=== PATIENT | female | born 1990 | race Caucasian/White ===

== ENCOUNTER 2017-03-15 16:40 | Inpatient (IN) | payer BC ==
[2017-03-15] MEDS ORDERED: Nalbuphine 20 MG/1 ML Amp IVPUSH PRN (16:58)
[2017-03-15] MEDS ORDERED: Ondansetron 4 MG/2 ML SDV IVPUSH PRN (16:58)
[2017-03-15] MEDS ORDERED: Sodium Chloride 0.9% 10 ML Syringe FLUSH PRN (16:58)
[2017-03-15] MEDS ORDERED: Acetaminophen 325 MG Tab PO PRN (16:58)
--- NOTE | 2017-03-15 16:58 | PCM.LDHP ---
L&D History of Present Illness - General Date of Service: 03/15/17 Admit Problem/Dx: Admission Diagnosis/Problem Admission Diagnosis/Problem Source of Information: Patient History Limitations: Reports: No Limitations - History of Present Illness Introduction:: Patient is a 26 y/o at 37 2/7 wks who presents today for PROM. Was seen in clinic earlier today and reported a few day history of increased watery discharge. Amnisure done in clinic was positive. She was advised to present for augmentation/IOL due to this finding. Otherwise doing well with no other concerns. 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: , Spontaneous : 3 Para: 1 LMP (Approximate): Endocrine/Metabolic History: Reports: Diabetes, Gestational - Past Surgical History Female Surgical History: Reports: D&C Social & Family History - Family History Family Medical History: Noncontributory - Tobacco Use Smoking Status *Q: Never Smoker Used Tobacco, but Quit: No Second Hand Smoke Exposure: No - Alcohol Use Alcohol Use History: No - Recreational Drug Use Recreational Drug Use: No H&P Review of Systems - Review of Systems: Review Of Systems: See Below General: Reports: No Symptoms Pulmonary: Reports: No Symptoms Cardiovascular: Reports: No Symptoms Gastrointestinal: Reports: No Symptoms Genitourinary: Reports: No Symptoms Musculoskeletal: Reports: No Symptoms L&D Exam - Exam Exam: See Below - OB Specific Contraction Intensity: Irritability Movement: Active Heart Tones: Present Heart Tones per Min: 145 Heart Rate (FHR) Variability: Moderate (6-25 bmp) Presentation: Vertex - Mckeon Score Mckeon Score Cervix Position: Midposition Mckeon Score Consistency: Soft Mckeon Score Effacement: >80% Mckeon Score Dilation: 3-4 cm Mckeon Score 's Station: -1 ,0 Mckeon Score Total: 10 - Exam General: Alert, Oriented, Cooperative Lungs: Clear to Auscultation, Normal Respiratory Effort Cardiovascular: Regular Rate, Regular Rhythm GI/Abdominal Exam: Soft, Non-Tender Genitourinary: Normal external exam Extremities: Normal Inspection Skin: Warm, Dry, Intact - Patient Data Result Diagrams: 03/15/17 17:20 - Problem List (1) 37 weeks gestation of SNOMED Code(s): 33276245 ICD Code: Z3A.37 - 37 WEEKS GESTATION OF Status: Acute Current Visit: Yes (2) Premature rupture of membranes SNOMED Code(s): 43972906 ICD Code: O42.90 - SYLVIE ROM, 7TH0 BETW RUPT & ONST LABR, UNSP WEEKS OF GEST Status: Acute Current Visit: Yes Qualifiers: PROM onset of labor timing: unspecified duration between rupture of membranes and onset of labor PROM gestational age: full term Qualified Code( s): O42.92 - Full-term premature rupture of membranes, unspecified as to length of time between rupture and onset of labor (3) Gestational diabetes, diet controlled SNOMED Code(s): 91392496 ICD Code: O24.410 - GESTATIONAL DIABETES MELLITUS IN , DIET CONTROLLED Status: Acute Current Visit: No Qualifiers: Trimester: third trimester Qualified Code(s): O24.410 - Gestational diabetes mellitus in , diet controlled Problem List Initiated/Reviewed/Updated: Yes Assessment/Plan Comment:: 26 y/o at 37 2/7 wks with PROM of uncertain duration * CBC and T&S * GBS negative, no need for antibiotics * Blood sugars q 4 hours * Pitocin for augmentation * Pain control per patient preference * Anticipate
[2017-03-15] MEDS ORDERED: Oxytocin/Lactated Ringers 10 UNIT/1,000 ML BAG IV SCH ×2 (17:00)
[2017-03-15] MEDS ORDERED: Lactated Ringers 1,000 ML IV SCH (17:00)
--- NOTE | 2017-03-15 20:47 | PCM.PNLD ---
Labor Progress Note - VS & Meds Vital Signs: Last Vital Signs Temp 36.6 C 03/15/17 16:58 Pulse 80 03/15/17 17:30 Resp 16 03/15/17 16:58 BP 127/88 03/15/17 17:10 Pulse Ox 98 03/15/17 17:10 Active Medications: Current Medications Acetaminophen (Tylenol) 650 mg PO Q4H PRN PRN Reason: Pain (Mild 1-3) and fever Lactated Ringer's (Ringers, Lactated) 1,000 mls @ 40 mls/hr IV ASDIRECTED KAMRAN Last Admin: 03/15/17 17:10 Dose: 40 mls/hr Oxytocin/Lactated Ringer's (Pitocin In Lr 10 Units/1,000 Ml) 10 unit in 1,000 mls @ 12 mls/hr IV TITRATE KAMRAN; 2 MUNITS/MIN PRN Reason: Protocol Last Titration: 03/15/17 19:07 Dose: 4 munits/min, 24 mls/hr Oxytocin/Lactated Ringer's (Pitocin In Lr 10 Units/1,000 Ml) 10 unit in 1,000 mls @ 500 mls/hr IV .CONTINUOUS KAMRAN Nalbuphine HCl (Nubain) 10 mg IVPUSH Q2H PRN PRN Reason: Pain (moderate 4-6) Ondansetron HCl (Zofran) 4 mg IVPUSH Q4H PRN PRN Reason: Nausea/Vomiting Sodium Chloride (Saline Flush) 10 ml FLUSH ASDIRECTED PRN PRN Reason: Keep Vein Open - Uterine Contractions Uterine Monitoring Mode: External [place] Contraction Intensity: Mild to Moderate Uterine Resting Tone: Soft - Monitoring Monitor Mode: External Ultrasound Heart Rate (FHR) Variability: Moderate (6-25 bmp) Accelerations: Present, 15x15 Decelerations: None Strip Review: Category I - Vaginal Exam Dilation (cm): 3 Effacement (Percent): 80 Station: -1 Cervical Position: Midposition - Labor Progress (Free Text) Labor Progress: Pitocin at 4. Doing well. Rates contractions mild overall. AROM performed of forebag with release of moderate amount of clear fluid. Continue present management
--- NOTE | 2017-03-16 00:21 | PCM.DEL ---
L & D Note - General Info Date of Service: 03/16/17 - Delivery Note Labor: Augmented by Oxytocin Delivery Outcome: Livebirth Delivery Method: Spontaneous Vaginal Delivery-Single Delivery Mode: Spontaneous Presentation: Right Occiput Anterior (MOAR) Nuchal Cord: None Anesthesia Type: None Amniotic Fluid Description: Clear Episiotomy Type: None Laceration: 1st Degree, Perineal Placenta: Intact, Spontaneous Cord: 3 Vessels Estimated Blood Loss: 200 Resuscitation Needed: Yes : Bulb Syringe, Stimulated, Warmed, [place] Used, Warmer Used Score 1 min: 8 Score 5 min: 9 Delivery Comments (Free Text/Narrative):: Patient found to be complete and began pushing. With maternal pushing effort head delivered from an OMAR presentation. No nuchal cord present. With gentle downward traction the shoulders and body delivered. placed on maternal abdomen. Cord clamped and cut. Cord blood obtained. Placenta allowed time to separate and then expelled. Inspection of the perineum showed a 1st degree laceration which was not bleeding and so not repaired. - Patient Data Vitals - Most Recent: Last Vital Signs Temp 36.6 C 03/15/17 16:58 Pulse 80 03/15/17 17:30 Resp 16 03/15/17 16:58 BP 127/88 03/15/17 17:10 Pulse Ox 98 03/15/17 17:10 Weight - Most Recent: 68.81 kg Lab Results Last 24 Hours: Laboratory Results - last 24 hr 03/15/17 03/15/17 Range/Units 17:20 17:20 WBC 12.16 H (3.98-10.04) K/mm3 RBC 3.88 L (3.98-5.22) M/mm3 Hgb 11.9 (11.2-15.7) gm/L Hct 36.5 (34.1-44.9) % MCV 94.1 (79.4-94.8) fl MCH 30.7 (25.6-32.2) pg MCHC 32.6 (32.2-35.5) g/dl RDW Std Deviation 41.6 (36.4-46.3) fL Plt Count 249 (182-369) K/mm3 MPV 11.4 (9.4-12.3) fl Blood Type O POSITIVE Gel Antibody Screen Negative Med Orders - Current: Current Medications Acetaminophen (Tylenol) 650 mg PO Q4H PRN PRN Reason: Pain (Mild 1-3) and fever Lactated Ringer's (Ringers, Lactated) 1,000 mls @ 40 mls/hr IV ASDIRECTED KAMRAN Last Admin: 03/15/17 17:10 Dose: 40 mls/hr Oxytocin/Lactated Ringer's (Pitocin In Lr 10 Units/1,000 Ml) 10 unit in 1,000 mls @ 12 mls/hr IV TITRATE KAMRAN; 2 MUNITS/MIN PRN Reason: Protocol Last Titration: 03/15/17 20:15 Dose: 6 munits/min, 36 mls/hr Oxytocin/Lactated Ringer's (Pitocin In Lr 10 Units/1,000 Ml) 10 unit in 1,000 mls @ 500 mls/hr IV .CONTINUOUS KAMRAN Nalbuphine HCl (Nubain) 10 mg IVPUSH Q2H PRN PRN Reason: Pain (moderate 4-6) Ondansetron HCl (Zofran) 4 mg IVPUSH Q4H PRN PRN Reason: Nausea/Vomiting Sodium Chloride (Saline Flush) 10 ml FLUSH ASDIRECTED PRN PRN Reason: Keep Vein Open - Problem List & Annotations (1) 37 weeks gestation of SNOMED Code(s): 13154793 Code(s): Z3A.37 - 37 WEEKS GESTATION OF Status: Acute Current Visit: Yes (2) Premature rupture of membranes SNOMED Code(s): 88449679 Code(s): O42.90 - SYLVIE ROM, 7TH0 BETW RUPT & ONST LABR, UNSP WEEKS OF GEST Status: Acute Current Visit: Yes Qualifiers: PROM onset of labor timing: unspecified duration between rupture of membranes and onset of labor PROM gestational age: full term Qualified Code( s): O42.92 - Full-term premature rupture of membranes, unspecified as to length of time between rupture and onset of labor (3) Gestational diabetes, diet controlled SNOMED Code(s): 32312789 Code(s): O24.410 - GESTATIONAL DIABETES MELLITUS IN , DIET CONTROLLED Status: Acute Current Visit: No Qualifiers: Trimester: third trimester Qualified Code(s): O24.410 - Gestational diabetes mellitus in , diet controlled - Problem List Review Problem List Initiated/Reviewed/Updated: Yes - My Orders Last 24 Hours: My Active Orders 03/15/17 16:58 Communication Order [RC] ASDIRECTED Communication Order [RC] ASDIRECTED Communication Order [RC] ASDIRECTED Notify Provider [RC] ASDIRECTED Up ad Kendra [RC] ASDIRECTED Acetaminophen [Tylenol] 650 mg PO Q4H PRN Nalbuphine [Nubain] 10 mg IVPUSH Q2H PRN Ondansetron [Zofran] 4 mg IVPUSH Q4H PRN Sodium Chloride 0.9% [Saline Flush] 10 ml FLUSH ASDIRECTED PRN Electronic Heart Tones Internal [WOMSER] Per Unit Routine Peripheral IV Insertion Adult [OM.PC] Routine Resuscitation Status Routine 03/15/17 16:59 Patient Status [ADT] Routine Peripheral IV Care [RC] . DIRECTED 03/15/17 17:00 Lactated Ringers [Ringers, Lactated] 1,000 ml IV ASDIRECTED Oxytocin/Lactated Ringers [Pitocin in LR 10 Units/1,000 ML] 10 unit in 1,000 ml IV .CONTINUOUS Oxytocin/Lactated Ringers [Pitocin in LR 10 Units/1,000 ML] 10 unit in 1,000 ml IV TITRATE 03/15/17 17:45 Blood Glucose Check, Bedside [RC] Q4HR 03/15/17 Dinner Regular Diet [DIET] - Assessment Assessment:: 26 y/o G3 now P1112 PPD#0 from at 37 3/7 wks - Plan Plan:: * Routine cares * Encourage breast feeding * Fasting blood sugar in AM * Discharge home in 1-2 days
[2017-03-16] MEDS ORDERED: Docusate Sodium 100 MG Cap PO PRN (01:21)
[2017-03-16] MEDS ORDERED: Ibuprofen 600 MG Tab PO PRN (01:21)
[2017-03-16] MEDS: Acetaminophen 325 MG Tab PO PRN ×2 (16:10→20:27)
[2017-03-16 20:50] VITALS: BP 121/66
--- NOTE | 2017-03-17 07:43 | PCM.PNPP ---
- General Info Date of Service: 03/17/17 Functional Status: Reports: Pain Controlled, Tolerating Diet, Ambulating, Urinating - Review of Systems General: Reports: No Symptoms Pulmonary: Reports: No Symptoms Cardiovascular: Reports: No Symptoms Gastrointestinal: Reports: No Symptoms Genitourinary: Reports: No Symptoms Musculoskeletal: Reports: No Symptoms - Patient Data Vital Signs - Most Recent: Last Vital Signs Temp 36.9 C 03/16/17 20:29 Pulse 60 03/16/17 20:29 Resp 14 03/16/17 20:29 BP 121/66 03/16/17 20:29 Pulse Ox 99 03/16/17 20:29 Weight - Most Recent: 68.81 kg Med Orders - Current: Current Medications Acetaminophen (Tylenol) 650 mg PO Q4H PRN PRN Reason: mild pain or fever Last Admin: 03/16/17 20:27 Dose: 650 mg Docusate Sodium (Colace) 100 mg PO BID PRN PRN Reason: Constipation Ibuprofen (Motrin) 600 mg PO Q6H PRN PRN Reason: Mild pain or fever Last Admin: 03/16/17 10:24 Dose: 600 mg Discontinued Medications Acetaminophen (Tylenol) 650 mg PO Q4H PRN PRN Reason: Pain (Mild 1-3) and fever Lactated Ringer's (Ringers, Lactated) 1,000 mls @ 40 mls/hr IV ASDIRECTED KAMRAN Last Admin: 03/15/17 17:10 Dose: 40 mls/hr Oxytocin/Lactated Ringer's (Pitocin In Lr 10 Units/1,000 Ml) 10 unit in 1,000 mls @ 12 mls/hr IV TITRATE KAMRAN; 2 MUNITS/MIN PRN Reason: Protocol Last Titration: 03/15/17 20:15 Dose: 6 munits/min, 36 mls/hr Oxytocin/Lactated Ringer's (Pitocin In Lr 10 Units/1,000 Ml) 10 unit in 1,000 mls @ 500 mls/hr IV .CONTINUOUS KAMRAN Nalbuphine HCl (Nubain) 10 mg IVPUSH Q2H PRN PRN Reason: Pain (moderate 4-6) Ondansetron HCl (Zofran) 4 mg IVPUSH Q4H PRN PRN Reason: Nausea/Vomiting Sodium Chloride (Saline Flush) 10 ml FLUSH ASDIRECTED PRN PRN Reason: Keep Vein Open - Interaction Disposition, : in Room with Family Interaction: Holding Infant Infant Feeding: Breastfed Infant; Nursed Well Support Person: - Recovery Exam Fundal Tone: Firm Fundal Level: 2 Fingerbreadths Below Umbilicus Fundal Placement: Midline Lochia Amount: Small Lochia Color: Rubra/Red Bladder Status: Voiding Urinary Elimination: Voided - Exam General: Alert, Oriented, Cooperative GI/Abdominal Exam: Soft, Non-Tender Extremities: Normal Inspection Skin: Warm, Dry, Intact - Problem List & Annotations (1) 37 weeks gestation of SNOMED Code(s): 52800776 Code(s): Z3A.37 - 37 WEEKS GESTATION OF Status: Acute Current Visit: Yes (2) Premature rupture of membranes SNOMED Code(s): 23568442 Code(s): O42.90 - SYLVIE ROM, 7TH0 BETW RUPT & ONST LABR, UNSP WEEKS OF GEST Status: Acute Current Visit: Yes Qualifiers: PROM onset of labor timing: unspecified duration between rupture of membranes and onset of labor PROM gestational age: full term Qualified Code( s): O42.92 - Full-term premature rupture of membranes, unspecified as to length of time between rupture and onset of labor (3) Gestational diabetes, diet controlled SNOMED Code(s): 03461048 Code(s): O24.410 - GESTATIONAL DIABETES MELLITUS IN , DIET CONTROLLED Status: Acute Current Visit: No Qualifiers: Trimester: third trimester Qualified Code(s): O24.410 - Gestational diabetes mellitus in , diet controlled (4) Vaginal delivery SNOMED Code(s): 040737082 Code(s): O80 - ENCOUNTER FOR FULL-TERM UNCOMPLICATED DELIVERY Status: Acute Current Visit: No - Problem List Review Problem List Initiated/Reviewed/Updated: Yes - My Orders Last 24 Hours: My Active Orders 03/16/17 Breakfast Regular Diet [DIET] 03/17/17 01:21 Heat Therapy [OM.PC] PRN 03/17/17 07:42 Ready for Discharge [RC] PER UNIT ROUTINE - Assessment Assessment:: 26 y/o G3 now P1112 PPD#1 from at 37 3/7 wks - Plan Plan:: * Routine cares * Encourage breast feeding * Fasting blood sugar done yesterday and appropriate. Needs 2hr GTT at check * Discharge home today
--- NOTE | 2017-03-17 07:43 | PCM.DCSUM1 ---
Discharge Summary - Discharge Data Discharge Date: 03/17/17 Discharge Disposition: Home, Self-Care 01 Condition: Good - Discharge Diagnosis/Problem(s) (1) 37 weeks gestation of SNOMED Code(s): 78238561 ICD Code: Z3A.37 - 37 WEEKS GESTATION OF Status: Acute Current Visit: Yes (2) Premature rupture of membranes SNOMED Code(s): 66420078 ICD Code: O42.90 - SYLVIE ROM, 7TH0 BETW RUPT & ONST LABR, UNSP WEEKS OF GEST Status: Acute Current Visit: Yes Qualifiers: PROM onset of labor timing: unspecified duration between rupture of membranes and onset of labor PROM gestational age: full term Qualified Code( s): O42.92 - Full-term premature rupture of membranes, unspecified as to length of time between rupture and onset of labor (3) Gestational diabetes, diet controlled SNOMED Code(s): 07902111 ICD Code: O24.410 - GESTATIONAL DIABETES MELLITUS IN , DIET CONTROLLED Status: Acute Current Visit: No Qualifiers: Trimester: third trimester Qualified Code(s): O24.410 - Gestational diabetes mellitus in , diet controlled (4) Vaginal delivery SNOMED Code(s): 637902054 ICD Code: O80 - ENCOUNTER FOR FULL-TERM UNCOMPLICATED DELIVERY Status: Acute Current Visit: No - Patient Summary/Data Complications: None Consults: None Recommended Follow-up Testing/Procedures: Follow up in 2-6 weeks for check Hospital Course: 26 y/o presented at 37 2/7 wks with PROM. She was started on pitocin and made quick change to complete dilation. She underwent an uncomplicated . she did well and was discharged home on PPD#1. Plans for follow pu with 2hr GTT in clinic. - Patient Instructions Diet: Regular Diet as Tolerated Activity: As Tolerated Activity, Other: Pelvic Rest for 6 weeks Driving: May Drive Today Showering/Bathing: May Shower Showering/Bathing, Other: May Bathe Notify Provider of: Fever, Increased Pain, Swelling and Redness, Drainage, Nausea and/or Vomiting - Discharge Plan Home Medications: Home Meds PNV95/Ferrous Fumarate/FA [ Vitamins Tablet] 1 tab PO DAILY 03/15/17 [ History] Docusate Sodium [Colace] 100 mg PO BID PRN cap 03/17/17 [Rx] Ibuprofen [IJD: Ibuprofen] 600 mg PO Q6H PRN tablet 03/17/17 [Rx] Referrals: Shanita Linda MD [Primary Care Provider] - (2-6 weeks for check ) - Discharge Summary/Plan Comment DC Time >30 min.: No - Patient Data Vitals - Most Recent: Last Vital Signs Temp 36.9 C 03/16/17 20:29 Pulse 60 03/16/17 20:29 Resp 14 03/16/17 20:29 BP 121/66 03/16/17 20:29 Pulse Ox 99 03/16/17 20:29 Weight - Most Recent: 68.81 kg Med Orders - Current: Current Medications Acetaminophen (Tylenol) 650 mg PO Q4H PRN PRN Reason: mild pain or fever Last Admin: 03/16/17 20:27 Dose: 650 mg Docusate Sodium (Colace) 100 mg PO BID PRN PRN Reason: Constipation Ibuprofen (Motrin) 600 mg PO Q6H PRN PRN Reason: Mild pain or fever Last Admin: 03/16/17 10:24 Dose: 600 mg Discontinued Medications Acetaminophen (Tylenol) 650 mg PO Q4H PRN PRN Reason: Pain (Mild 1-3) and fever Lactated Ringer's (Ringers, Lactated) 1,000 mls @ 40 mls/hr IV ASDIRECTED KAMRAN Last Admin: 03/15/17 17:10 Dose: 40 mls/hr Oxytocin/Lactated Ringer's (Pitocin In Lr 10 Units/1,000 Ml) 10 unit in 1,000 mls @ 12 mls/hr IV TITRATE KAMRAN; 2 MUNITS/MIN PRN Reason: Protocol Last Titration: 03/15/17 20:15 Dose: 6 munits/min, 36 mls/hr Oxytocin/Lactated Ringer's (Pitocin In Lr 10 Units/1,000 Ml) 10 unit in 1,000 mls @ 500 mls/hr IV .CONTINUOUS KAMRAN Nalbuphine HCl (Nubain) 10 mg IVPUSH Q2H PRN PRN Reason: Pain (moderate 4-6) Ondansetron HCl (Zofran) 4 mg IVPUSH Q4H PRN PRN Reason: Nausea/Vomiting Sodium Chloride (Saline Flush) 10 ml FLUSH ASDIRECTED PRN PRN Reason: Keep Vein Open *Q Meaningful Use (DIS) - VTE *Q VTE Criteria *Q: - Stroke *Q Stroke Criteria *Q: - AMI *Q AMI Criteria *Q:
== END 2017-03-17 10:50 | disposition home or self-care (01) | DRG 560 ==
LOC: JD.OBCHECK 16:40 → JD.OB 16:43 → JD.OBCHECK 16:59 → JD.OB 16:59 → OBSVTOIN 03-16 00:05
PROVIDERS: ADMIT Obstetrics & Gynecology; ATTEND Obstetrics & Gynecology
PROC: 10E0XZZ Delivery of Products of Conception, External Approach (ICD-10-PCS; principal; 2017-03-16)
PROC: 10907ZC Drainage of Amniotic Fluid, Therapeutic from Products of Conception, Via Natural or Artificial Opening (ICD-10-PCS; 2017-03-16)
DX: O42.92 Full-term premature rupture of membranes, unspecified as to length of time between rupture and onset of labor (principal); Z3A.37 37 weeks gestation of pregnancy; Z37.0 Single live birth; Z88.0 Allergy status to penicillin; O24.420 Gestational diabetes mellitus in childbirth, diet controlled; O70.0 First degree perineal laceration during delivery
CPT/HCPCS: 36415; 59409; 82962; 85027; 86850; 86900; 86901; A9270-GY; J2590; J7120

== ENCOUNTER 2021-01-15 18:50 | Inpatient (IN) | payer BC ==
[2021-01-15] MEDS ORDERED: Sodium Chloride 0.9% 10 ML Syringe FLUSH PRN (19:19)
[2021-01-15] MEDS ORDERED: Nalbuphine 10 MG/1 ML Vial IVPUSH PRN (19:19)
[2021-01-15] MEDS ORDERED: Ondansetron 4 MG/2 ML SDV IVPUSH PRN (19:19)
[2021-01-15] MEDS ORDERED: Lactated Ringers 1,000 ML IV SCH (19:30)
[2021-01-15] MEDS ORDERED: Oxytocin/Lactated Ringers 10 UNIT/1,000 ML BAG IV SCH ×2 (19:30)
--- NOTE | 2021-01-15 20:47 | PCM.LDHP ---
L&D History of Present Illness - General Date of Service: 01/15/21 Admit Problem/Dx: Patient Status Order with Admit Dx/Problem 01/15/21 19:20 Patient Status [ADT] Routine Admission Diagnosis/Problem Admission Diagnosis/Problem 01/15/21 20:35 Zaynab is a 30-year-old 5 para 2-1-1-3 female admitted on the evening of 01/15/2021 at 39-1/7 weeks gestational age with an JORGE of 01/21/2021 in active labor. Source of Information: Patient History Limitations: Reports: No Limitations - History of Present Illness Introduction:: Zaynab is a 30-year-old 5 para 2-1-1-3 female admitted on the evening of 01/15/2021 at 39-1/7 weeks gestational age with an JORGE of 01/21/2021 in active labor. She reports she started labor at approximate 1100 hrs. this morning. Thought it was [place] initially but they progressed. At approximately 1900 hrs. this evening patient arrived at the hospital. She was 4 cm at that time. She was admitted, reports she desired natural labor. Labor progressed very rapidly and at approximately 2004 hrs. the patient had rupture membranes with resultant clear amniotic fluid. The baby delivered precipitously at 2009 hrs. on 01/15/2021. Delivery was not attended by physician and nurse was present for the delivery. Baby was placed on mom's abdomen, dried with warm blanket. Umbilical cord cord was clamped x2 and was cut by the baby's father. Pitocin was started at 500 cc an hour using 10 unit in a liter concentration of solution. This to facilitate increase in uterine tone and decrease likelihood of bleeding. history: Patient was initially seen at 10-0/7 weeks gestational age at on 06/25/2020. She is seen on a regular basis. Weight gain over the course the is was was from 148 to 154 pounds. Vital signs are stable. Fundal height growth was appropriate. Patient's working JORGE is based on her exact last menstrual period starting 04/16/2020. Ultrasound done on 06/25/2020 was consistent with dates at 9-4/7 weeks. The course was remarkable only for gestational diabetes which appears to have been diet-controlled. Laboratory testing shows her blood to be O+ with a negative MS screen. Initial hemoglobin was 14.4. Platelets are 363,000. Early 1 hour GTT was normal at 122 but it 26 to 28-week GTT was 139. Patient was diagnosed with gestational diabetes and by and history was diet-controlled. Her rubella titer was reactive indicating immunity. Syphilis IgG and IgM was nonreactive. Hepatitis B surface antigen was nonreactive. Chlamydia and gonorrhea were not detected. Urine culture was negative. Group B strep screen 12/22/2020 was negative. Allergies: Penicillin Medications: vitamins 1 p.o. daily Past medical history: 1. x3 with one 2 full-term 2. Miscarriage managed with dilation and suction curettage Past surgical history: 1. D&C for miscarriage Family history: Mother and father are alive and well. Both grandfathers are secondary to old age medical conditions. Maternal great grandmother with diabetes. Grandmothers are both alive. No family history of bleeding disorders, blood clotting disorders, anesthesia or problems. Zaynab's has history of Burkitt's lymphoma. Social history: Patient is . is [place]. They live in [place]. 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 She denies any significance alcohol, drugs or tobacco. Review of systems: Patient was admitted in active labor. At the time of this history and physical patient has delivered. She is appearing comfortable and has no complaints. Skin: Negative Lungs: No infectious symptoms or shortness of breath Cardiovascular: No chest pain or exercise intolerance : Patient has just delivered. Is receiving Pitocin IV to facilitate increase in uterine tone. Musculoskeletal: Negative Neurological: Negative Physical exam: In general the patient is well-developed, well-nourished, pleasant female of stated age in no acute distress. At the time of physical exam patient is just delivered. Skin is warm dry without lesions. HEENT, neck and back within normal limits. Lungs are clear with good breath sounds in all lung [place]. Cardiovascular exam shows regular and rhythm without murmurs. Abdomen is flat, soft, uterus is at the umbilicus and firm. She is receiving Pitocin through the IV. Genital exam shows small very superficial perineal laceration that has no anatomical distortion associated with it nor is it bleeding. No suturing re quired. Extremities and neurological exam are grossly within normal limits. - Related Data Allergies/Adverse Reactions: Allergies Allergy/AdvReac Type Severity Reaction Status Date / Time Penicillins Allergy Severe Anaphylactic Verified 03/15/17 17:30 Shock Home Medications: Home Meds Pnv No.95/Ferrous Fum/Folic AC [ Vitamins Tablet] 1 tab PO DAILY 03/15/17 [History] Ibuprofen [Motrin 100 MG/5 ML Susp] 600 mg PO Q4H PRN cup 01/07/19 [Rx] Past Medical History - Past Health History Medical/Surgical History: Denies Medical/Surgical History HEENT History: Reports: None GEOSPATIAL SYSTEMS INTEGRATOR History: Reports: , Spontaneous Other OB/BYN History: D&C 2005 Endocrine/Metabolic History: Reports: Diabetes, Gestational - Past Surgical History Female Surgical History: Reports: D&C Social & Family History - Family History Family Medical History: No Pertinent Family History - Caffeine Use Caffeine Use: Reports: None H&P Review of Systems - Review of Systems: Review Of Systems: See Below L&D Exam - Exam Exam: See Below - Vital Signs Weight: 68.039 kg - Patient Data Lab Results Last 24 hrs: Laboratory Results - last 24 hr 01/15/21 01/15/21 Range/Units 19:36 19:36 WBC 16.59 H (3.98-10.04) K/mm3 RBC 4.32 (3.98-5.22) M/mm3 Hgb 12.7 (11.2-15.7) gm/dl Hct 40.4 (34.1-44.9) % MCV 93.5 (79.4-94.8) fl MCH 29.4 (25.6-32.2) pg MCHC 31.4 L (32.2-35.5) g/dl RDW Std Deviation 44.8 (36.4-46.3) fL Plt Count 349 (182-369) K/mm3 MPV 10.4 (9.4-12.3) fl Neut % (Auto) 73.3 H (34.0-71.1) % Lymph % (Auto) 19.6 (19.3-51.7) % [place] % (Auto) 6.7 (4.7-12.5) % Eos % (Auto) 0.1 L (0.7-5.8) Baso % (Auto) 0.1 (0.1-1.2) % Neut # (Auto) 12.16 H (1.56-6.13) K/mm3 Lymph # (Auto) 3.25 (1.18-3.74) K/mm3 [place] # (Auto) 1.11 H (0.24-0.36) K/mm3 Eos # (Auto) 0.01 L (0.04-0.36) K/mm3 Baso # (Auto) 0.02 (0.01-0.08) K/mm3 Blood Type O POSITIVE Result Diagrams: 01/15/21 19:36 - Problem List (1) 39 weeks gestation of SNOMED Code(s): 59422874 ICD Code: Z3A.39 - 39 WEEKS GESTATION OF Status: Acute Current Visit: Yes (2) Labor, precipitous, delivered SNOMED Code(s): 422976647, 369031910 ICD Code: O62.3 - PRECIPITATE LABOR Status: Acute Current Visit: Yes (3) Gestational diabetes mellitus (GDM) affecting fifth SNOMED Code(s): 61064671968246 ICD Code: O24.419 - GESTATIONAL DIABETES MELLITUS IN , UNSP CONTROL; O09.40 - SUPERVISION OF W GRAND MULTIPARITY, UNSP TRIMESTER Status: Acute Current Visit: Yes Problem List Initiated/Reviewed/Updated: Yes Orders Last 24hrs: Active Orders 24 hr Category Date Time Status Patient Status [ADT] Routine ADT 01/15/21 19:20 Active Activity as Tolerated [RC] PFP Care 01/15/21 19:20 Active Communication Order [RC] ASDIRECTED Care 01/15/21 19:20 Active Heart Tones [RC] ASDIRECTED Care 01/15/21 19:20 Active Non Stress Test [RC] PER UNIT ROUTINE Care 01/15/21 19:20 Active Notify Provider [RC] PFP Care 01/15/21 19:20 Active Notify Provider [RC] PRN Care 01/15/21 19:20 Active Peripheral IV Care [RC] . DIRECTED Care 01/15/21 19:20 Active Vital Signs [RC] PER UNIT ROUTINE Care 01/15/21 19:20 Active Regular Diet [DIET] Diet 01/15/21 Dinner Active CORONAVIRUS COVID-19 DAO [MOLEC] Stat Lab 01/15/21 19:55 Received RAPID PLASMA REAGIN,RPR [CHEM] Routine Lab 01/15/21 19:36 Received TYPE AND SCREEN [BBK] Stat Lab 01/15/21 19:36 Results Lactated Ringers [Ringers, Lactated] 1,000 ml Med 01/15/21 19:30 Active IV ASDIRECTED Nalbuphine [Nubain] Med 01/15/21 19:19 Active 10 mg IVPUSH Q2H PRN Ondansetron [Zofran] Med 01/15/21 19:19 Active 4 mg IVPUSH Q4H PRN Oxytocin/Lactated Ringers [Pitocin in LR 10 Units/1,000 Med 01/15/21 19:30 Active ML] 10 unit in 1,000 ml IV .CONTINUOUS Oxytocin/Lactated Ringers [Pitocin in LR 10 Units/1,000 Med 01/15/21 19:30 Active ML] 10 unit in 1,000 ml IV TITRATE Sodium Chloride 0.9% [Saline Flush] Med 01/15/21 19:19 Active 10 ml FLUSH ASDIRECTED PRN Electronic Heart Tones Ext w TOCO [WOMSER] Oth 01/15/21 19:20 Ordered Routine Electronic Heart Tones Internal [WOMSER] Per Unit Ot 01/15/21 19:20 Ordered Routine Peripheral IV Insertion Adult [OM.PC] Routine Ot 01/15/21 19:20 Ordered Resuscitation Status Routine Resus Stat 01/15/21 19:19 Ordered Medication Orders Oxytocin/Lactated Ringer's (Pitocin In Lr 10 Units/1,000 Ml) 10 unit in 1,000 mls @ 12 mls/hr IV TITRATE KAMRAN; Protocol Oxytocin/Lactated Ringer's (Pitocin In Lr 10 Units/1,000 Ml) 10 unit in 1,000 mls @ 100 mls/hr IV .CONTINUOUS KAMRAN Lactated Ringer's (Ringers, Lactated) 1,000 mls @ 100 mls/hr IV ASDIRECTED KAMRAN Nalbuphine HCl (Nalbuphine 10 Mg/1 Ml Vial) 10 mg IVPUSH Q2H PRN PRN Reason: Pain Ondansetron HCl (Ondansetron 4 Mg/2 Ml Sdv) 4 mg IVPUSH Q4H PRN PRN Reason: Nausea/Vomiting Sodium Chloride (Sodium Chloride 0.9% 10 Ml Syringe) 10 ml FLUSH ASDIRECTED PRN PRN Reason: Keep Vein Open Assessment/Plan Comment:: 1. Zaynab is a 30-year-old 5 para 2-1-1-3 female admitted on the evening of 01/15/2021 at 39-1/7 weeks gestational age with an JORGE of 01/21/2021 in active labordelivered at the time of admission history and physical. 2. Group B strep negative 3. Patient desired natural labor 4. Patient plans to breast-feed. Plan: 1. Routine care 2. Pitocin per IV to facilitate increase in uterine tone and decrease likelihood of bleeding 3. Support breast-feeding decision
--- NOTE | 2021-01-15 21:03 | PCM.SN.2 ---
- Free Text/Narrative Note: Delivery note: Stage I/II: Zaynab is a 30-year-old 5 para 2-1-1-3 female admitted on the evening of 01/15/2021 at 39-1/7 weeks gestational age with an JORGE of 01/21/2021 in active labor. She reports she started labor at approximate 1100 hrs. this morning. Thought it was [place] initially but they progressed. At approximately 1900 hrs. this evening patient arrived at the hospital. She was 4 cm at that time. She was admitted, reports she desired natural labor. Labor progressed very rapidly and at approximately 2004 hrs. the patient had rupture membranes with resultant clear amniotic fluid. The baby delivered precipitously at 2009 hrs. on 01/15/2021. Delivery was not attended by physician and nurse was present for the delivery. Baby was placed on mom's abdomen, dried with warm blanket. Umbilical cord cord was clamped x2 and was cut by the baby's father. Cord blood was obtained. Pitocin was started at 500 cc an hour using 10 unit in a liter concentration of solution. This to facilitate increase in uterine tone and decrease likelihood of bleeding. A cristina male infant was delivered in occiput anterior position. He weighed 2950 g (6 pounds 8.1 ounces), had a length of 21.0 inches and scores of 8 and 9. Baby's name is Alfred Yancey. No lacerations were encountered and no suturing was needed. Stage III: The placenta delivered in a Hendrix presentation, appeared intact and complete and was discarded per patient desire. Perineum was evaluated. Estimated blood loss was 100 cc. Patient plans to breast-feed. Condition: Good
[2021-01-15] MEDS ORDERED: Witch Hazel Medicated Pads 40/Jar TOP PRN (21:55)
[2021-01-15] MEDS ORDERED: Benzocaine/Menthol 20%-0.5% Spray 56 GM Canister TOP PRN (21:55)
[2021-01-15] MEDS ORDERED: Ibuprofen 600 MG Tab PO PRN (21:55)
[2021-01-15] MEDS ORDERED: Acetaminophen 325 MG Tab PO PRN (21:55)
[2021-01-15] MEDS ORDERED: Docusate Sodium 100 MG Cap PO PRN (21:55)
--- NOTE | 2021-01-16 10:51 | PCM.SN.2 ---
- Free Text/Narrative Note: note: Patient is doing well in the period. Minimal lochia, voiding well, ambulated without problems. Nursing without concerns. Patient is afebrile, vital signs are stable Abdomen is flat, soft, uterus is below the umbilicus and is firm and nontender. Legs are nontender. Assessment: recovery going well. Plan: Routine care. Patient be discharged home within the next 24-48 hours.
[2021-01-16 23:22] VITALS: BP 111/59; PULSE 64
--- NOTE | 2021-01-17 07:04 | PCM.DCSUM1 ---
Discharge Summary - Hospital Course Free Text/Narrative:: Stage I/II: Zaynab is a 30-year-old 5 para 2-1-1-3 female admitted on the evening of 01/15/2021 at 39-1/7 weeks gestational age with an JORGE of 01/21/2021 in active labor. She reports she started labor at approximate 1100 hrs. this morning. Thought it was [place] initially but they progressed. At approximately 1900 hrs. this evening patient arrived at the hospital. She was 4 cm at that time. She was admitted, reports she desired natural labor. Labor progressed very rapidly and at approximately 2004 hrs. the patient had rupture membranes with resultant clear amniotic fluid. The baby delivered precipitously at 2009 hrs. on 01/15/2021. Delivery was not attended by physician and nurse was present for the delivery. Baby was placed on mom's abdomen, dried with warm blanket. Umbilical cord cord was clamped x2 and was cut by the baby's father. Cord blood was obtained. Pitocin was started at 500 cc an hour using 10 unit in a liter concentration of solution. This to facilitate increase in uterine tone and decrease likelihood of bleeding. A cristina male was delivered in occiput anterior position. He weighed 2950 g (6 pounds 8.1 ounces), had a length of 21.0 inches and scores of 8 and 9. Baby's name is Alfred Yancey. No lacerations were encountered and no suturing was needed. Stage III: The placenta delivered in a Hendrix presentation, appeared intact and complete and was discarded per patient desire. Perineum was evaluated. Estimated blood loss was 100 cc. Patient plans to breast-feed. patient has done well. She is nursing without problems, has minimal lochia, is voiding well and ambulating without concerns. She is desiring discharge home. Condition: Good Diagnosis: Stroke: No - Discharge Data Discharge Date: 01/16/21 Discharge Disposition: Home, Self-Care 01 Condition: Good - Referral to Home Health Primary Care Physician: Shanita Linda MD - Discharge Diagnosis/Problem(s) (1) 39 weeks gestation of SNOMED Code(s): 42698520 ICD Code: Z3A.39 - 39 WEEKS GESTATION OF Status: Acute (2) Labor, precipitous, delivered SNOMED Code(s): 862095724, 726780009 ICD Code: O62.3 - PRECIPITATE LABOR Status: Acute (3) Gestational diabetes mellitus (GDM) affecting fifth SNOMED Code(s): 28826536445458 ICD Code: O24.419 - GESTATIONAL DIABETES MELLITUS IN , UNSP CONTROL; O09.40 - SUPERVISION OF W GRAND MULTIPARITY, UNSP TRIMESTER Status: Acute - Patient Instructions Diet: Usual Diet as Tolerated Activity: As Tolerated (No intercourse or tampons until bleeding resolves) Driving: May Drive Today Showering/Bathing: May Shower (May take a bath) Notify Provider of: Fever, Increased Pain, Swelling and Redness, Drainage, Nausea and/or Vomiting Other/Special Instructions: Noting in the Vagina for 6 weeks. - Discharge Plan Home Medications: Home Meds Pnv No.95/Ferrous Fum/Folic AC [ Vitamins Tablet] 1 tab PO DAILY 03/15/17 [History] Ibuprofen [Motrin 100 MG/5 ML Susp] 600 mg PO Q4H PRN cup 01/07/19 [Rx] Patient Handouts: Care After Vaginal Delivery Referrals: Shanita Linda MD [Primary Care Provider] - - Discharge Summary/Plan Comment DC Time >30 min.: No Total # of Minutes for Discharge Time: 10 Discharge Summary/Plan Comment: Discharge instructions: 1. Discharge home 2. Diet, activity and follow-up discussed with patient. Recommend nursing diet with increased calories and calcium. 3. Precautions given concern increased pain, bleeding, temperature, signs/symptoms of DVT/PE. 4. Medications per home medication was printed, discussed with and given to the patient. 5. [facility] Diagnosis: Term -delivered Condition: Good - Patient Data Vitals - Most Recent: Last Vital Signs Temp 36.3 C 01/16/21 20:02 Pulse 64 01/16/21 20:02 Resp 14 01/16/21 20:02 BP 111/59 L 01/16/21 20:02 Pulse Ox 96 01/16/21 20:02 Weight - Most Recent: 68.039 kg Med Orders - Current: Current Medications Discontinued Medications Acetaminophen (Acetaminophen 325 Mg Tab) 650 mg PO Q4H PRN PRN Reason: mild pain or fever Benzocaine/Menthol (Benzocaine/Menthol 20%-0.5% Isaban 56 Gm Canister) 0 gm TOP ASDIRECTED PRN PRN Reason: Perineal Comfort Measure Last Admin: 01/15/21 22:14 Dose: 1 applic Documented by: Docusate Sodium (Docusate Sodium 100 Mg Cap) 100 mg PO BID PRN PRN Reason: Constipation Oxytocin/Lactated Ringer's (Pitocin In Lr 10 Units/1,000 Ml) 10 unit in 1,000 mls @ 12 mls/hr IV TITRATE KAMRAN; Protocol Oxytocin/Lactated Ringer's (Pitocin In Lr 10 Units/1,000 Ml) 10 unit in 1,000 mls @ 100 mls/hr IV .CONTINUOUS KAMRAN Lactated Ringer's (Ringers, Lactated) 1,000 mls @ 100 mls/hr IV ASDIRECTED KAMRAN Ibuprofen (Ibuprofen 600 Mg Tab) 600 mg PO Q4H PRN PRN Reason: Mild pain or fever Nalbuphine HCl (Nalbuphine 10 Mg/1 Ml Vial) 10 mg IVPUSH Q2H PRN PRN Reason: Pain Ondansetron HCl (Ondansetron 4 Mg/2 Ml Sdv) 4 mg IVPUSH Q4H PRN PRN Reason: Nausea/Vomiting Sodium Chloride (Sodium Chloride 0.9% 10 Ml Syringe) 10 ml FLUSH ASDIRECTED PRN PRN Reason: Keep Vein Open Witch Kirsty (Witch Kirsty Medicated Pads 40/Jar) 1 pad TOP ASDIRECTED PRN PRN Reason: Perineal Comfort Measure Last Admin: 01/15/21 22:13 Dose: 1 applic Documented by:
== END 2021-01-16 21:55 | disposition home or self-care (01) | DRG 560 ==
LOC: JD.OBCHECK 18:50 → JD.OB 18:50 → JD.OBCHECK 19:19 → JD.OB 19:20 → OBSVTOIN 20:09
PROVIDERS: ADMIT Obstetrics & Gynecology; ATTEND Obstetrics & Gynecology
PROC: 10E0XZZ Delivery of Products of Conception, External Approach (ICD-10-PCS; principal; 2021-01-15)
DX: O62.3 Precipitate labor (principal); O24.420 Gestational diabetes mellitus in childbirth, diet controlled; Z3A.39 39 weeks gestation of pregnancy; Z37.0 Single live birth; Z20.822 Contact with and (suspected) exposure to COVID-19
CPT/HCPCS: 36415; 59025; 59409; 85025; 86592; 86803; 86850; 86900; 86901; A9270-GY; U0002

== ENCOUNTER 2023-06-13 13:27 | Inpatient (IN) | payer BC ==
[2023-06-13] MEDS ORDERED: Oxytocin 10 Units/1 ML SDV IM ONE (13:34)
[2023-06-13] MEDS ORDERED: Lidocaine 1% 50 ML MDV INJECT PRN (13:40)
[2023-06-13] MEDS ORDERED: Lactated Ringers 1,000 ML IV SCH (13:45)
[2023-06-13] MEDS ORDERED: Docusate Sodium 100 MG Cap PO PRN (15:12)
[2023-06-13] MEDS ORDERED: Benzocaine/Menthol 20%-0.5% Spray 78 GM Cannister TOP PRN (15:12)
[2023-06-13] MEDS ORDERED: Acetaminophen 325 MG Tab PO PRN (15:12)
[2023-06-13] MEDS ORDERED: Ibuprofen 600 MG Tab PO PRN (15:12)
[2023-06-13] MEDS ORDERED: Witch Hazel Medicated Pads 40/Jar TOP PRN (15:12)
[2023-06-14 12:36] VITALS: BP 107/60; PULSE 59
== END 2023-06-14 14:48 | disposition home or self-care (01) | DRG 560 ==
LOC: JD.OB 13:27 → OBSVTOIN 13:27 → JD.OB 13:32
PROVIDERS: ADMIT Obstetrics & Gynecology; ATTEND Obstetrics & Gynecology
PROC: 10E0XZZ Delivery of Products of Conception, External Approach (ICD-10-PCS; principal; 2023-06-13)
DX: O42.02 Full-term premature rupture of membranes, onset of labor within 24 hours of rupture (principal); Z37.0 Single live birth; Z3A.38 38 weeks gestation of pregnancy; Z88.0 Allergy status to penicillin
CPT/HCPCS: 59025; 59409; J2590

== ENCOUNTER 2025-01-10 07:05 | Inpatient (IN) | payer BC ==
[2025-01-10] MEDS ORDERED: Sodium Chloride 0.9% 10 ML Syringe FLUSH PRN (07:13)
[2025-01-10] MEDS ORDERED: Nalbuphine 10 MG/1 ML Vial IVPUSH PRN (07:13)
[2025-01-10] MEDS ORDERED: Ondansetron 4 MG/2 ML SDV IVPUSH PRN (07:13)
[2025-01-10] MEDS ORDERED: Oxytocin/0.9 % Sodium Chloride 30 UNIT/500 ML BAG IV SCH (07:15)
[2025-01-10 07:36] LABS: BASOPHILS ABSOLUTE AUTO 0.1 K/mm3 (0.0-0.2); BASOPHILS PERCENT AUTO 0.6 % (0.0-1.0); EOSINOPHILS ABSOLUTE AUTO 0.0 K/mm3 (0.0-0.4); EOSINOPHILS PERCENT AUTO 0.2 % (0.0-6.0); IMMATURE GRAN ABSOLUTE AUTO 0.04 K/mm3 (0.00-0.05); IMMATURE GRAN PERCENT AUTO 0.4 % (0.0-0.4); LYMPHOCYTES ABSOLUTE AUTO 3.4 K/mm3 (1.0-4.8); LYMPHOCYTES PERCENT AUTO 36.1 % (24.0-44.0); MEAN PLATELET VOLUME 11.3 fl (9.4-12.3); MONOCYTES ABSOLUTE AUTO 0.7 K/mm3 (0.0-0.8); MONOCYTES PERCENT AUTO 7.1 % (0.0-8.0); NEUTROPHILS ABSOLUTE AUTO 5.2 K/mm3 (1.8-7.7); NEUTROPHILS PERCENT AUTO 55.6 % (41.0-71.0); NRBC ABSOLUTE 0.00 (0.00-0.02); NRBC PERCENT 0.0 % (0.0-0.2); PLATELET COUNT,PLT 265 K/mm3 (150-400); RED BLOOD CELL COUNT 4.60 M/mm3 (4.10-5.30); WHITE BLOOD CELL COUNT,WBC 9.32 K/mm3 (3.9-11.3)
[2025-01-10 08:06] LABS: A/G RATIO 0.7 (1-2); ALANINE AMINOTRANSFERASE,ALT 19.0 U/L (14-59); ASPARTATE AMNIOTRANSFERASE,AST 22.0 U/L (15-37); BILIRUBIN TOTAL 0.2 mg/dL (0.2-1.0); BLOOD UREA NITROGEN,BUN 16.0 mg/dL (7-18); CARBON DIOXIDE,CO2 24.0 mEq/L (21-32); CHLORIDE,CL 106.0 mEq/L (98-107); CREATININE 1.2 mg/dL (0.55-1.02); EST CRCL DRUG DOSING (CG) 48.91 mL/min; ESTIMATED GFR 60.0 mL/min (>60); GLUCOSE RANDOM 74.0 mg/dL (70-99); POTASSIUM,K 3.8 mEq/L (3.5-5.1); PROTEIN TOTAL,TP 6.8 g/dl (6.4-8.2); SODIUM,NA 139.0 mEq/L (136-145)
[2025-01-10] MEDS: Lactated Ringers 1,000 ML IV SCH (10:18)
[2025-01-10] MEDS: Oxytocin/0.9 % Sodium Chloride 30 UNIT/500 ML BAG IV SCH (10:18)
[2025-01-10] MEDS: Sodium Chloride 0.9% 10 ML Syringe FLUSH SCH (10:58)
[2025-01-10] MEDS: Misoprostol 25 MCG (1/4 of 100 MCG) Tab VAG ONE (10:58)
[2025-01-10] MEDS ORDERED: Witch Hazel Medicated Pads 40/Jar TOP PRN (16:23)
[2025-01-10] MEDS ORDERED: Benzocaine/Menthol 20%-0.5% Spray 78 GM Cannister TOP PRN (16:23)
[2025-01-10] MEDS ORDERED: Calcium Gluconate 10% 1 GM/10 ML SDV IV PRN (16:53)
[2025-01-10] MEDS: Labetalol 100 MG/20 ML MDV IVPUSH ONE ×2 (17:00→17:15)
[2025-01-10] MEDS: Magnesium Sulf/Wat 4 GM/50 mL 4 GM in Premix Bag 1 BAG IV ONE (17:13)
[2025-01-10] MEDS: Magnesium Sulfate 2 GM/50 mL 2 GM in Premix Bag 1 BAG IV ONE (17:35)
[2025-01-10] MEDS: Labetalol 100 MG/20 ML MDV ONE (17:59)
[2025-01-11] MEDS: Lactated Ringers 1,000 ML IV SCH (02:54)
[2025-01-11 05:32] LABS: ALANINE AMINOTRANSFERASE,ALT 18.0 U/L (14-59); ASPARTATE AMNIOTRANSFERASE,AST 20.0 U/L (15-37); BLOOD UREA NITROGEN,BUN 12.0 mg/dL (7-18); CREATININE 1.0 mg/dL (0.55-1.02); EST CRCL DRUG DOSING (CG) 58.69 mL/min; ESTIMATED GFR 75.0 mL/min (>60)
[2025-01-11 05:40] LABS: BASOPHILS ABSOLUTE AUTO 0.1 K/mm3 (0.0-0.2); BASOPHILS PERCENT AUTO 0.4 % (0.0-1.0); EOSINOPHILS ABSOLUTE AUTO 0.0 K/mm3 (0.0-0.4); EOSINOPHILS PERCENT AUTO 0.1 % (0.0-6.0); IMMATURE GRAN ABSOLUTE AUTO 0.05 K/mm3 (0.00-0.05); IMMATURE GRAN PERCENT AUTO 0.4 % (0.0-0.4); LYMPHOCYTES ABSOLUTE AUTO 2.8 K/mm3 (1.0-4.8); LYMPHOCYTES PERCENT AUTO 20.2 % (24.0-44.0); MEAN PLATELET VOLUME 11.4 fl (9.4-12.3); MONOCYTES ABSOLUTE AUTO 1.0 K/mm3 (0.0-0.8); MONOCYTES PERCENT AUTO 7.4 % (0.0-8.0); NEUTROPHILS ABSOLUTE AUTO 9.9 K/mm3 (1.8-7.7); NEUTROPHILS PERCENT AUTO 71.5 % (41.0-71.0); NRBC ABSOLUTE 0.00 (0.00-0.02); NRBC PERCENT 0.0 % (0.0-0.2); PLATELET COUNT,PLT 249 K/mm3 (150-400); RED BLOOD CELL COUNT 4.05 M/mm3 (4.10-5.30); WHITE BLOOD CELL COUNT,WBC 13.77 K/mm3 (3.9-11.3)
[2025-01-11 06:46] LABS: LACTATE DEHYDROGENASE,LDH 261.0 U/L (81-234)
[2025-01-11] MEDS: Labetalol 100 MG/20 ML MDV IVPUSH ONE (18:59)
[2025-01-12 13:19] VITALS: BP 138/84; PULSE 56
== END 2025-01-12 14:46 | disposition home or self-care (01) | DRG 560 ==
LOC: JD.OBCHECK 07:05 → JD.OB 07:14 → OBSVTOIN 15:09 → JD.OB 15:09
PROVIDERS: ADMIT Obstetrics & Gynecology; ATTEND Obstetrics & Gynecology
PROC: 10E0XZZ Delivery of Products of Conception, External Approach (ICD-10-PCS; principal; 2025-01-10)
PROC: 10907ZC Drainage of Amniotic Fluid, Therapeutic from Products of Conception, Via Natural or Artificial Opening (ICD-10-PCS; 2025-01-10)
PROC: 4A1HXCZ Monitoring of Products of Conception, Cardiac Rate, External Approach (ICD-10-PCS; 2025-01-10)
PROC: 3E033VJ Introduction of Other Hormone into Peripheral Vein, Percutaneous Approach (ICD-10-PCS; 2025-01-10)
DX: O14.94 Unspecified pre-eclampsia, complicating childbirth (principal); Z3A.37 37 weeks gestation of pregnancy; Z37.0 Single live birth; O36.5930 Maternal care for other known or suspected poor fetal growth, third trimester, not applicable or unspecified; O14.15 Severe pre-eclampsia, complicating the puerperium
CPT/HCPCS: 36415; 59025; 59409; 80053; 82565; 83615; 83735; 84450; 84460; 84520; 84550; 85025; A9270-GY; J1920; J3475; J7120; J7999